=== PATIENT | female | born 1975 | race Caucasian/White ===

== ENCOUNTER 2018-07-02 13:44 | Emergency (ER) | payer SELFPAY ==
--- NOTE | 2018-07-02 14:16 | PDOC ---
History of Present Illness - General Chief Complaint: Pain Stated Complaint: RT EAR AND HEAD PAIN Time Seen by Provider: 07/02/18 13:54 History Source: Patient Exam Limitations: No Limitations - History of Present Illness Initial Comments: 07/02/18 14:14 43y F hx of migraine presents with complaint of headache since sunday as well as sharp intermittent pain in her R ear since sunday. Pt ntose her headache is pressure like headache, and sh eintermittently has a sharp pain in th eR ear lasting for a second before resolving. pt notse the headache has improved a bit. no associated hearing changes, fever/chlls, currently n/v, neck pain, back pain. Pt notes she has ahd an episode of vomiting /diarrrhea this weekend but resolved. no coughing, sore throat, nasal congestion. no prior history of similar pain in the past. no hearing changes. pt took topamax without significant relief of her pain. pt brandon any cp, sob, melena/bpr, numbness/tingling/weakness, vision chagnes. Review of Systems - Review of Systems Able to Perform ROS?: Yes Comments:: 07/02/18 14:37 CONSTITUTIONAL: No reported: Fever, Chills, Diaphoresis, Generalized Weakness, Malaise, Loss of Appetite HEENT: +ear pain No reported: Rhinorrhea, Nasal Congestion, Throat Pain, Throat Swelling, Difficulty Swallowing, Mouth Swelling, Eye Pain, Visual Changes CARDIOVASCULAR: No reported: Chest Pain, Syncope, Palpitations, Irregular Heart Rate, Lightheadedness, Peripheral Edema RESPIRATORY: No reported: Cough, Shortness of Breath, SOB with Exertion, Orthopnea, Wheezing , Stridor, Hemoptysis GASTROINTESTINAL: +Abdominal pain, Vomiting, Diarrhea, (resolved) No reported: Abdominal Distension, Nausea, Constipation, Melena, Hematochezia GENITOURINARY: No reported: Dysuria, Frequency, Urgency, Hesitancy, Flank Pain, Genital Pain MUSCULOSKELETAL: No reported: Myalgia, Arthralgia, Joint Swelling, Back pain, Neck Pain SKIN: No reported: Rash, Itching, Pallor HEMEATOLOGIC/IMMUNOLOGIC: No reported: Easy Bleeding, Easy Bruising, Lymphadenopathy, Frequent infections ENDOCRINE: No reported: Unexplained Weight Gain, Unexplained Weight Loss, Heat Intolerance , Cold Intolerance NEUROLOGIC: +Headache, No reported: Focal Weakness, Paresthesias, Vertigo, Lightheadedness, Unsteady Gait, Seizure, Mental Status Changes, Incontinence PSYCHIATRIC: No reported: Anxiety, Depression *Physical Exam - Physical Exam Comments: 07/02/18 14:38 GENERAL: The patient is awake, alert, and fully oriented, Nontoxic - in no acute distress. HEAD: Normocephalic, atraumatic. EYES: extraocular movements intact, sclera anicteric, conjunctiva clear. ENT: Normal voice, Moist mucous membranes. TMs wnl symmetric, nl light relfex, no erythema, induration, bulging/scarring, no mastoid tenderness, throat clear without exudates/erythema NECK: Normal range of motion, supple LUNGS: Breath sounds equal, clear to auscultation bilaterally. No wheezes, no rhonchi, no rales. HEART: Regular rate and rhythm, without murmur, rub or gallop. ABDOMEN: Soft, nontender, No guarding, no rebound.No CVA tenderness EXTREMITIES: Normal range of motion, no edema. No cyanosis. No erythema, or tenderness. NEUROLOGICAL: No facial assymetry, Normal speech, PSYCH: Normal mood, normal affect. SKIN: Warm, Dry, normal turgor, Medical Decision Making - Medical Decision Making 07/02/18 14:41 no signs of vesicular lesions on ear no neuro dficits no focal tenderness no clniical signs of sinusitis ?viral syndrome ?tmj pt declines pain meds here. do not feel CT ncessary for workup at this point. will refer pt to ent for further mangaement/evaluation. return preacutions were discussed I discussed the physical exam findings, ancillary test results and final diagnoses with the patient. I answered all of the patient's questions. The patient was satisfied with the care received and felt comfortable with the discharge plan and treatment plan. The patient will call their primary care physician within 24 hours to arrange follow-up and will return to the Emergency Department with any new, persistent or worsening symptoms. *DC/Admit/Observation/Transfer Diagnosis at time of Disposition: Ear pain, right - Discharge Dispostion Disposition: HOME Condition at time of disposition: Stable Decision to Admit order: No - Referrals Referrals: Vadim Mendez MD [Staff Physician] - - Patient Instructions Printed Discharge Instructions: DI for Ear Pain-Adult Additional Instructions: Please take tylenol or motrin for your pain. If you have worsening headache, any vision changes, vomiting, fever, changes in your hearing, speech, or other concerns, return to the Emergency department immediately. Follow up with an ENT doctor for further evaluation. Print Language: BRUNEIAN - Post Discharge Activity
[2018-07-02 14:39] VITALS: BP 105/70; PULSE 82; TEMP 98.1; BMI 19.1
== END 2018-07-02 14:49 | disposition home or self-care (01) ==
LOC: FER 13:44
DX: H92.01 Otalgia, right ear (principal)
CPT/HCPCS: 99281-25